=== PATIENT | male | born 1975 | race Caucasian/White ===

== ENCOUNTER 2018-09-10 10:04 | Inpatient (IN) | payer BC ==
[2018-09-10] MEDS: THROMBIN 5000 UNIT VIAL (11:52)
[2018-09-10] MEDS: GELATIN SIZE 100 SPONGE (11:52)
[2018-09-10] MEDS: BUPIVACAINE 0.25%/EPI (SDV) 30 ML INJ (11:53)
[2018-09-10] MEDS: POLYMYXIN/BACITRACIN 1L IRRIG (11:53)
[2018-09-10] MEDS: LACTATED RINGER'S 1,000 ML IV (12:00)
[2018-09-10] MEDS: D5W-0.45 NACL + KCL 20 MEQ 1,000 ML IV ×2 (12:20→17:46)
[2018-09-10] MEDS: CEFAZOLIN 1 GM/50 ML (PMX) 50 ML IVPB ×2 (12:30→20:04)
[2018-09-10] MEDS ORDERED: ACETAMINOPHEN 325 MG TAB PO (12:30)
[2018-09-10] MEDS ORDERED: HYDROCODONE/APAP (10/325) TAB PO ×2 (12:30)
[2018-09-10] MEDS ORDERED: HYDROmorphONE 0.5 MG/0.5 ML SYG IV (12:30)
[2018-09-10] MEDS ORDERED: DIPHENHYDRAMINE 50 MG INJ IV ×2 (12:30→16:00)
[2018-09-10] MEDS ORDERED: NALOXONE (0.4 MG/ML) INJ IV (12:30)
[2018-09-10] MEDS ORDERED: CYCLOBENZAPRINE 10 MG TAB PO (12:30)
[2018-09-10] MEDS ORDERED: BISACODYL 10 MG SUPP PR (12:30)
[2018-09-10] MEDS ORDERED: DIPHENHYDRAMINE 25 MG CAP PO (12:30)
[2018-09-10] MEDS ORDERED: AL HYDROX/MG HYDROX/SIMETH 30 ML CUP PO (12:30)
[2018-09-10] MEDS ORDERED: MIDAZOLAM 1 MG/ML 2 ML INJ (12:47)
[2018-09-10] MEDS ORDERED: ROCURONIUM 50 MG INJ ×2 (13:00→14:13)
[2018-09-10] MEDS ORDERED: FAMOTIDINE 20 MG INJ (13:00)
[2018-09-10] MEDS ORDERED: DEXAMETHASONE 4 MG/ML 5 ML INJ (13:00)
[2018-09-10] MEDS ORDERED: PROPOFOL 40 ML (13:00)
[2018-09-10] MEDS ORDERED: LIDOCAINE 2% (SDV) 5 ML INJ (13:00)
[2018-09-10] MEDS ORDERED: SUCCINYLCHOLINE CHLORIDE 100 MG/5 ML SYG IV (13:00)
[2018-09-10] MEDS ORDERED: ONDANSETRON 4 MG INJ (13:00)
[2018-09-10] MEDS ORDERED: CEFAZOLIN 1 GM INJ (13:00)
[2018-09-10] MEDS ORDERED: HYDROmorphONE 2 MG/ML SYG (15:11)
[2018-09-10] MEDS ORDERED: EPHEDrine 25 MG/5 ML SYG ×2 (15:34)
[2018-09-10] MEDS ORDERED: SUGAMMADEX SODIUM 200 MG/2 ML VIAL IV (16:00)
[2018-09-10] MEDS ORDERED: PROCHLORPERAZINE 10 MG INJ IV (16:00)
[2018-09-10] MEDS ORDERED: ONDANSETRON 4 MG INJ IV (16:00)
[2018-09-10] MEDS ORDERED: MEPERIDINE 25 MG INJ IV (16:00)
[2018-09-10] MEDS ORDERED: hydrALAzine 20 MG INJ IV (16:00)
[2018-09-10] MEDS ORDERED: EPHEDrine 25 MG/5 ML SYG IV (16:00)
[2018-09-10] MEDS ORDERED: HYDROmorphONE 1 MG/5 ML IV SYRINGE IV ×3 (16:00)
[2018-09-10] MEDS ORDERED: FENTAnyl 50 MCG/ML VIAL IV ×3 (16:00)
[2018-09-10] MEDS ORDERED: LABETALOL HCL 20MG INJ IV (16:00)
[2018-09-10] MEDS ORDERED: NEOSTIGMINE 3 MG/3 ML SYRINGE (16:01)
[2018-09-10] MEDS ORDERED: GLYCOPYRROLATE 0.4 MG INJ (16:01)
[2018-09-10] MEDS: HYDROmorphONE 0.2 MG/ML PCA IV (16:26)
[2018-09-10] MEDS: ONDANSETRON 4 MG INJ IV (19:09)
[2018-09-10] MEDS: BUPROPION (SR) 150 MG TAB PO (21:00)
[2018-09-10] MEDS: LAMOTRIGINE 100 MG TAB PO (21:00)
[2018-09-10] MEDS: DOCUSATE SODIUM 100 MG CAP PO (21:00)
[2018-09-10] MEDS: RISPERIDONE 1 MG TAB PO (21:00)
[2018-09-11] MEDS: CEFAZOLIN 1 GM/50 ML (PMX) 50 ML IVPB (04:05)
[2018-09-11] MEDS: D5W-0.45 NACL + KCL 20 MEQ 1,000 ML IV (04:08)
[2018-09-11 08:24] LABS: ADD MAN DIFF? NO
[2018-09-11] MEDS: ONDANSETRON 4 MG INJ IV ×2 (08:28→11:56)
[2018-09-11 08:31] LABS: BASOPHILS % 0.4 % (0.0-2.0); EOSINOPHILS % 0.1 % (0.0-7.0); HEMATOCRIT 39.9 % (42.0-52.0); HEMOGLOBIN 12.5 g/dl (14.0-18.0); LYMPHOCYTES # 1.2 10^3/ul (0.8-2.9); LYMPHOCYTES % 12.5 % (15.0-51.0); MEAN CORPUSCULAR HEMOGLOBIN 27.1 pg (29.0-33.0); MEAN CORPUSCULAR HGB CONC 31.3 g/dl (32.0-37.0); MEAN CORPUSCULAR VOLUME 86.6 fl (82.0-101.0); MEAN PLATELET VOLUME 9.2 fl (7.4-10.4); MONOCYTE # 0.9 10^3/ul (0.3-0.9); MONOCYTES % 9.2 % (0.0-11.0); NEUTROPHIL # 7.5 10^3/ul (1.6-7.5); NEUTROPHILS % 77.4 % (39.0-77.0); PLATELET COUNT 284 10^3/UL (140-415); RED BLOOD COUNT 4.61 10^6/ul (4.70-6.10)
[2018-09-11 08:31] LABS: WHITE BLOOD COUNT 9.7 10^3/ul (4.8-10.8)
[2018-09-11] MEDS: DOCUSATE SODIUM 100 MG CAP PO ×2 (08:37→09:00)
[2018-09-11] MEDS: FLUOXETINE 20 MG CAP PO ×2 (08:37→09:00)
[2018-09-11] MEDS: RISPERIDONE 1 MG TAB PO ×2 (08:37→09:00)
[2018-09-11] MEDS: BUPROPION (SR) 150 MG TAB PO ×2 (08:37→09:00)
[2018-09-11 08:49] LABS: ANION GAP 7 (5-13); BLOOD UREA NITROGEN 11 mg/dl (7-20); CALCIUM 8.7 mg/dl (8.4-10.2); CARBON DIOXIDE 30 mmol/L (21-31); CHLORIDE 104 mmol/L (97-110); CREATININE 0.86 mg/dl (0.61-1.24); Estimated GFR > 60 mL/min (>60); GLUCOSE 130 mg/dl (70-220); MAGNESIUM 1.9 mg/dl (1.7-2.5); POTASSIUM 3.6 mmol/L (3.5-5.1); SODIUM 141 mmol/L (135-144)
[2018-09-11] MEDS ORDERED: HYDROCODONE/APAP (10/325) TAB PO (09:30)
[2018-09-11] MEDS: CEPASTAT LOZENGE MT (10:37)
[2018-09-11] MEDS: LACTATED RINGER'S 1,000 ML IV (11:57)
[2018-09-11] MEDS: HYDROCODONE/APAP (10/325) TAB PO (11:57)
== END 2018-09-11 16:45 | disposition home or self-care (01) | DRG 472 ==
LOC: REC 10:04 → MS1 17:34
PROC: 0RG20A0 Fusion of 2 or more Cervical Vertebral Joints with Interbody Fusion Device, Anterior Approach, Anterior Column, Open Approach (ICD-10-PCS; principal; 2018-09-10 12:00)
PROC: 4A11X4G Monitoring of Peripheral Nervous Electrical Activity, Intraoperative, External Approach (ICD-10-PCS; 2018-09-10 12:00)
DX: M50.123 Cervical disc disorder at C6-C7 level with radiculopathy (principal); F11.20 Opioid dependence, uncomplicated; R11.0 Nausea; F99 Mental disorder, not otherwise specified; F41.9 Anxiety disorder, unspecified
CPT/HCPCS: 72050; 80048; 83735; 85025; 88304; 97116; 97162; 97530